=== PATIENT | female | born 1985 | race Asian ===

== ENCOUNTER 2016-10-28 22:48 | Emergency (ER) | payer BC ==
[~2016-10-28] VITALS: Ht 160 cm; Wt 80.3 kg
[2016-10-28 23:24] VITALS: BP 122/80; TEMP 98.4
== END 2016-10-28 23:25 | disposition home or self-care (01) ==
LOC: ED 22:48
PROC: 0HQ1XZZ Repair Face Skin, External Approach (ICD-10-PCS; principal; 2016-10-28)
DX: S01.112A Laceration without foreign body of left eyelid and periocular area, initial encounter (principal); W19.XXXA Unspecified fall, initial encounter; Y92.098 Other place in other non-institutional residence as the place of occurrence of the external cause
CPT/HCPCS: 99283